=== PATIENT | male | born 1945 | race Caucasian/White ===

== ENCOUNTER 2018-02-28 11:02 | Emergency (ER) | payer OTHER ==
[~2018-02-28] VITALS: Ht 177.8 cm; Wt 64.0 kg
--- NOTE | ~2018-02-28 | EKG ---
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 : 1945 Requested By: Fransico Torres Order Number: [id number] MD: Zohaib Mccabe Measurements Intervals [place] Rate: 75 P: 77 CT: 139 QRS: 57 QRSD: 96 T: 91 QT: 433 QTc: 484 Interpretive Statements Sinus rhythm Left ventricular hypertrophy Nonspecific T abnormalities, lateral leads Borderline prolonged QT interval No previous ECG available for comparison Electronically Signed On 02-28-2018 16:01:26 CDT by Zohaib Mccabe [email or web address] <ELECTRONICALLY SIGNED> By: Zohaib Mccabe MD, [facility] 02/28/18 1601 1217 1217 Zohaib Mccabe MD, FACC /EPI
[2018-02-28 12:17] LABS: ABSOLUTE NEUTROPHILS 5.7 thou/uL (1.4-8.2); EOSINOPHILS 3.6 % (0.0-3.0); HEMATOCRIT 34.4 % (42.0-52.0); HEMOGLOBIN 11.6 gm/dL (14.0-18.0); LYMPHOCYTES 16.3 % (24.0-44.0); MCH 29.9 pg (26.0-34.0); MCHC 33.7 g/dL (28.0-37.0); MCV 88.6 fL (80.0-100.0); MONOCYTES 5.7 % (1.0-8.0); PLATELET COUNT 271 thou/uL (150-400); POLYS 73.4 % (36.0-66.0); RBC 3.88 mil/uL (4.50-6.00); RDW 15.7 % (10.5-14.5); WBC 7.7 thou/uL (4.0-11.0)
[2018-02-28 12:25] LABS: ANION GAP 6 mmol/L (7-16); BUN 12 mg/dL (7-18); CALCIUM 9.1 mg/dL (8.5-10.1); CHLORIDE 104 mmol/L (98-107); CO2 29 mmol/L (21-32); CREATININE 0.8 mg/dL (0.7-1.3); GLUCOSE 124 mg/dL (74-106); POTASSIUM 4.2 mmol/L (3.5-5.1); SODIUM 139 mmol/L (136-145)
[2018-02-28 12:34] LABS: ALBUMIN 3.4 g/dL (3.4-5.0); SGOT 15 U/L (15-37); SGPT 21 U/L (30-65); TOTAL BILIRUBIN 0.3 mg/dL (<0.1-1.0); TOTAL PROTEIN 7.3 g/dL (6.4-8.2); TROPONIN-I < 0.04 ng/mL (<0.06)
[2018-02-28] MEDS ORDERED: FOLIC ACID1 MG PO (12:52)
[2018-02-28] MEDS ORDERED: PROTONIX40 M1 PO (12:52)
[2018-02-28] MEDS ORDERED: LISINOPRIL30 MG PO (12:53)
[2018-02-28] MEDS ORDERED: ERGOCALCIF50000 UNIT PO (12:53)
[2018-02-28 13:04] VITALS: BP 174/60
== END 2018-02-28 13:04 | disposition home or self-care (01) ==
LOC: ER 11:02
PROVIDERS: Emergency Medicine
DX: I10 Essential (primary) hypertension (principal); J44.9 Chronic obstructive pulmonary disease, unspecified; F17.210 Nicotine dependence, cigarettes, uncomplicated

== ENCOUNTER → 2018-02-28 | Outpatient (CLI) | payer OTHER ==
[~2018-02-28] MED LIST: ERGOCALCIF50000 UNIT PO; FOLIC ACID1 MG PO; LISINOPRIL30 MG PO; PROTONIX40 M1 PO
== END ==
LOC: SEN 07:52
DX: J44.9 Chronic obstructive pulmonary disease, unspecified (principal); I10 Essential (primary) hypertension; E55.9 Vitamin D deficiency, unspecified; F17.200 Nicotine dependence, unspecified, uncomplicated

== ENCOUNTER → 2018-03-08 | Outpatient (CLI) | payer OTHER ==
[~2018-03-08] VITALS: Ht 177.8 cm; Wt 63.8 kg
[~2018-03-08] MED LIST changes: +LISINOPRIL20 MG PO
[2018-03-08 15:34] VITALS: BP 210/86
== END ==
LOC: SEN 08:52
DX: I10 Essential (primary) hypertension (principal); J44.9 Chronic obstructive pulmonary disease, unspecified